=== PATIENT | female | born 1975 | race Caucasian/White ===

== ENCOUNTER 2023-06-14 17:55 | Emergency (ER) | payer MEDICAID ==
[~2023-06-14] VITALS: Ht 162.6 cm; Wt 137.0 kg
[~2023-06-14 17:55] MED LIST: (None)3.5 GM OP; AMOXICILLI400 MG/5 M PO; AUGMENTIN400 MG/5 M PO; AUGMENTINES600 PO; AZITHROMYC200 MG/5 M PO; CLINDAMYCI75 MG/5 ML OR; FLEXERIL PO; FLEXERIL5 M1 PO; FLONASE NASAL50 MCG; GENTAMICIN15 ML/BTL OP; MEDDOSEPAK PO; NAPROSYN500 MG PO; PENICILLN250 MG/5 M PO; RANITIDINE75 MG/5 ML OR; SILVADENE1 % TOP; SIMETHICONE80 M2 PO; SULFATRIM1 ML PO; TESSALON200 MG PO; TRAVATAN Z0.004 % OP; TRAVATAN0.0041 OU; TYLENOL & COD12.5 ML PO; ULTRAM50 M1 PO; ZANTAC15 MG/ML OR
[2023-06-14 20:22] VITALS: BP 138/78
== END 2023-06-14 20:30 | disposition home or self-care (01) ==
LOC: ED 17:55
DX: J02.9 Acute pharyngitis, unspecified (principal); Z20.822 Contact with and (suspected) exposure to COVID-19